=== PATIENT | female | born 1970 | race Caucasian/White ===

== ENCOUNTER → 2017-09-14 | Outpatient (CLI) | payer MEDICAID ==
[~2017-09-14] MED LIST: IOHEXOL 350 MG/ML 150 ML (OMNIPAQUE 350) VIAL IV ONE; NS 250 ML (IVPB) BAG IV ONE; RT-ALBUTEROL SULF 2.5 MG/3 ML PRE-MIX VIAL INH ONE; RT-ALBUTEROL SULF 2.5 MG/3 ML PRE-MIX VIAL ONE
[2017-09-14 12:47] LABS: BUN/CREATININE RATIO 17; CREATININE SERUM 0.69 MG/DL (0.60-1.30); GFR ESTIMATED > 60
--- NOTE | 2017-09-14 13:27 | Diagnostic Imaging Report ---
PROCEDURE: CT angiography of the chest with contrast. TECHNIQUE: Multiple contiguous axial images were obtained through the chest after uneventful bolus administration of intravenous contrast. Reconstructed CTA MIP acquisitions were also performed. INDICATION: Difficulty breathing. COMPARISON: No prior studies are available for comparison. FINDINGS: The study is compromised, due to suboptimal opacification of the pulmonary arterial system. Proximal pulmonary arteries appear to be patent without evidence of filling defects. The segmental branches cannot be evaluated. The thoracic aorta is normal caliber. No dissection is seen. No pericardial or pleural fluid is identified. No axillary, hilar or mediastinal lymphadenopathy is detected. No definite pulmonary infiltrates, nodules or masses are seen. The upper abdomen is grossly unremarkable. There are postop changes to the stomach and GE junction. IMPRESSION: 1. Compromised study, described above. No definite evidence of central pulmonary emboli is identified. No acute features detected. Dictated by: Dictated on workstation # [id number]
== END ==
LOC: RAD 12:16
PROVIDERS: ATTEND Nurse Practitioner Family
DX: J45.909 Unspecified asthma, uncomplicated (principal); G47.50 Parasomnia, unspecified
CPT/HCPCS: 36415; 71275; 82565; 84520; 94060; 94726; 94729

== ENCOUNTER 2017-09-22 10:15 | Outpatient (CLI) | payer MEDICAID | END 2017-09-22 10:54 | disposition home or self-care (01) | LOC: SLEEP 10:15 → EDUNIT# 20:00 | PROVIDERS: ATTEND Nurse Practitioner Family | DX: G47.30 Sleep apnea, unspecified (principal); G47.50 Parasomnia, unspecified; G47.00 Insomnia, unspecified; R06.02 Shortness of breath; E66.01 Morbid (severe) obesity due to excess calories ==

== ENCOUNTER 2022-07-07 05:43 | Outpatient (CLI) | payer MEDICARE, MEDICAID ==
[~2022-07-07] VITALS: Ht 165.1 cm; Wt 130.6 kg
[2022-07-07] MEDS ORDERED: BUDE10.27 IH (11:04)
[2022-07-07] MEDS ORDERED: ACET12.5 PO (11:04)
[2022-07-07] MEDS ORDERED: BUDE10.7 IH (11:04)
[2022-07-07] MEDS ORDERED: RT-ALBUINH INH (11:04)
[2022-07-07] MEDS ORDERED: AMPH25CA3 PO (11:04)
[2022-07-07] MEDS ORDERED: ALBU2.5V4 INH (11:04)
[2022-07-07] MEDS ORDERED: FLUT15.845 NS (11:04)
[2022-07-07] MEDS ORDERED: VNL75T PO (14:14)
[2022-07-07] MEDS ORDERED: GABA-486 PO (14:14)
[2022-07-07] MEDS ORDERED: CYCL10TA25 PO (14:14)
[2022-07-07] MEDS ORDERED: DEXT30CA4 PO (14:14)
[2022-07-07] MEDS ORDERED: TRAZ-227 PO (14:14)
[2022-07-07] MEDS ORDERED: CETI10TA17 PO (14:14)
[2022-07-07] MEDS ORDERED: OMEP40CA6 PO (14:14)
[2022-07-07] MEDS ORDERED: MONT-40 PO (14:14)
[2022-07-07] MEDS ORDERED: POTA10CA44 PO (14:14)
[2022-07-07] MEDS ORDERED: PRAM0.12 PO (14:14)
[2022-07-07] MEDS ORDERED: TIZA4CAP8 PO (14:14)
[2022-07-07] MEDS ORDERED: ACHYD1T PO (14:14)
[2022-07-07] MEDS ORDERED: PANT40TA52 PO (14:14)
[2022-07-07] MEDS ORDERED: DULO60CA59 PO (14:14)
[2022-07-07] MEDS ORDERED: DOXY-444 PO (14:14)
[2022-07-07] MEDS ORDERED: MODA200T39 PO (14:14)
[2022-07-07] MEDS ORDERED: FURO20TA4 PO (14:14)
[2022-07-07] MEDS ORDERED: DICL75TA2 PO (14:14)
[2022-07-07] MEDS ORDERED: ROFL250T3 PO (14:14)
[2022-07-07] MEDS ORDERED: PREG50CA65 PO (14:14)
[2022-07-07] MEDS ORDERED: VENL150T PO (14:15)
== END 2022-07-07 14:30 | disposition home or self-care (01) ==
LOC: PREOP 05:43
PROVIDERS: ATTEND Surgery
DX: Z01.818 Encounter for other preprocedural examination (principal)

== ENCOUNTER 2022-12-08 05:56 | Outpatient (CLI) | payer MEDICARE, MEDICAID ==
[~2022-12-08] VITALS: Ht 165.1 cm; Wt 128.8 kg
[~2022-12-08 05:56] MED LIST changes: +ACET12.5 PO; +ACHYD1T PO; +ALBU2.5V4 INH; +AMPH25CA3 PO; +BUDE10.27 IH; +BUDE10.7 IH; +CETI10TA17 PO; +CYCL10TA25 PO; +DEXT30CA4 PO; +DICL75TA2 PO; +DOXY-444 PO; +DULO60CA59 PO; +FLUT15.845 NS; +FURO20TA4 PO; +GABA-486 PO; -IOHEXOL 350 MG/ML 150 ML (OMNIPAQUE 350) VIAL IV ONE; +MODA200T39 PO; +MONT-40 PO; -NS 250 ML (IVPB) BAG IV ONE; +OMEP40CA6 PO; +PANT40TA52 PO; +POTA10CA84 PO; +PRAM0.12 PO; +PREG50CA65 PO; +ROFL250T3 PO; +RT-ALBUINH INH; -RT-ALBUTEROL SULF 2.5 MG/3 ML PRE-MIX VIAL INH ONE; -RT-ALBUTEROL SULF 2.5 MG/3 ML PRE-MIX VIAL ONE; +TIZA4CAP8 PO; +TRAZ-227 PO; +VENL150T PO; +VNL75T PO
[2022-12-08] MEDS ORDERED: OMEP40CA6 PO (15:19)
[2022-12-08] MEDS ORDERED: BUME2TAB7 PO (15:19)
[2022-12-08] MEDS ORDERED: HYDR200T71 PO (15:19)
[2022-12-08] MEDS ORDERED: SEMA7TAB2 PO (15:19)
[2022-12-08] MEDS ORDERED: TORS20TA3 PO (15:19)
[2022-12-08] MEDS ORDERED: GABA-490 PO (15:19)
== END 2022-12-08 15:20 | disposition home or self-care (01) ==
LOC: PREOP 05:56
PROVIDERS: ATTEND Surgery
DX: Z01.818 Encounter for other preprocedural examination (principal)